=== PATIENT | female | born 1960 | race Caucasian/White ===

== ENCOUNTER → 2023-12-15 10:50 | Outpatient (REF) | payer OTHER, SELFPAY ==
[2023-12-15 11:34] LABS: Vitamin D, 25-OH*** 26.5 ng/mL (30-80)
[2023-12-15 12:06] LABS: Vitamin B12 281 pg/ml (239-931)
[2023-12-15 12:13] LABS: Glycohemoglobin (HgbA1c) 5.6 % (4.0-5.6)
[2023-12-18 17:24] LABS: Vitamin B6 Results 30.6 nmol/L (20.0-125.0)
== END ==
LOC: OLABN 10:50
PROVIDERS: ATTENDING PHYSICIAN Student in an Organized Health Care Education/Training Program
DX: K21.9 Gastro-esophageal reflux disease without esophagitis (principal)
CPT/HCPCS: 36415; 82306; 82607; 83036; 84207

== ENCOUNTER → 2024-01-16 10:50 | Outpatient (REF) | payer OTHER, SELFPAY ==
[2024-01-16 12:04] LABS: Vitamin D, 25-OH*** 34.9 ng/mL (30-80)
== END ==
LOC: OLABN 10:50
PROVIDERS: ATTENDING PHYSICIAN Student in an Organized Health Care Education/Training Program
DX: K21.9 Gastro-esophageal reflux disease without esophagitis (principal)
CPT/HCPCS: 36415; 82306